=== PATIENT | male | born 1995 | race African-American/Black ===

== ENCOUNTER 2023-09-17 18:17 | Emergency (ER) | payer SELFPAY ==
[~2023-09-17] VITALS: Ht 182.9 cm; Wt 81.0 kg
[2023-09-17 18:29] VITALS: BP 136/82; RESP 20; TEMP 97.9; O2SAT 99
[2023-09-17 18:37] VITALS: PULSE 69
[2023-09-17] MEDS ORDERED: ACET-2708 MT (19:01)
[2023-09-17] MEDS ORDERED: METH-653 MT (19:01)
== END 2023-09-17 19:20 | disposition home or self-care (01) ==
LOC: ER 18:17
DX: R51.9 Headache, unspecified (principal); M54.50 Low back pain, unspecified; Z98.890 Other specified postprocedural states; V98.8XXA Other specified transport accidents, initial encounter; Y93.89 Activity, other specified; Y92.89 Other specified places as the place of occurrence of the external cause; Y99.8 Other external cause status
CPT/HCPCS: 99283

== ENCOUNTER 2024-10-05 23:22 | Emergency (ER) | payer SELFPAY ==
[~2024-10-05] VITALS: Ht 188 cm; Wt 82.0 kg
[~2024-10-05 23:22] MED LIST: ACET-2708 MT; METH-653 MT
[2024-10-05 23:38] VITALS: BP 136/93; PULSE 56; RESP 16; TEMP 97.7; O2SAT 100; O2SAT 99
[2024-10-05] MEDS ORDERED: IBUP-2029 MT (23:49)
== END 2024-10-06 00:01 | disposition home or self-care (01) ==
LOC: ER 23:22
DX: S09.90XA Unspecified injury of head, initial encounter (principal); M54.50 Low back pain, unspecified; V49.40XA Driver injured in collision with unspecified motor vehicles in traffic accident, initial encounter; Y93.89 Activity, other specified; Y92.89 Other specified places as the place of occurrence of the external cause; Y99.8 Other external cause status
CPT/HCPCS: 99282